=== PATIENT | male | born 1985 | race Caucasian/White ===

== ENCOUNTER 2020-09-28 22:21 | Emergency (ER) | payer BC ==
[~2020-09-28] VITALS: Ht 190.5 cm; Wt 145.0 kg
--- NOTE | 2020-09-28 22:21 | NUR ---
INITIAL PT CONTACT. PT PRESENTS TO ED VIA EMS A TRANSFER FROM [facility] FOR PLEURITIC CHEST PAIN AND "RULE OUT PE, [facility] DOES NOT HAVE APPRORPIATE SCAN TO RULE OUT BECAUSE OF THE PT'S KIDNEY CONDITION", PER EMS. PT STATES PAIN BEGAN APPROX 24 HOURS AGO, WORSE WITH INSPIRATION AND MOVEMENT, "I THOUGHT I JUST MIGHT HAVE PERICARDITIS AGAIN." PT DENIES ANY OTHER COMPLAINTS AT THIS TIME. CALL LIGHT AND PERSONAL BELONGINGS WITHIN REACH. PT PLACED ON CONTINUOUS PULSE OX AND CARDIAC MONITORING. AWAITING ERP
[2020-09-28] MEDS ORDERED: LOSA50TA14 PO (22:39)
[2020-09-28] MEDS ORDERED: SPIR25TA5 PO (22:39)
[2020-09-28] MEDS ORDERED: LABE200T6 PO (22:39)
[2020-09-28] MEDS ORDERED: CLON0.1T22 PO (22:39)
[2020-09-28] MEDS ORDERED: HYDR100T25 PO (22:39)
[2020-09-28] MEDS ORDERED: KETOROLAC 30 MG/1 ML ONE (23:26)
[2020-09-28] MEDS ORDERED: KETOROLAC 30 MG/1 ML IVPush ONE (23:30)
--- NOTE | 2020-09-28 23:38 | NUR ---
PT C/O INCREASING PAIN, REQUESTING PAIN MEDICATION, ERP AWARE AND PT MEDICATED PER EMAR. NO ADDITIONAL NEEDS AT THIS TIME. US AT BEDSIDE
[2020-09-28 23:53] LABS: HCT (SEDRATE) 23.3 % (39.2-51.8)
--- NOTE | 2020-09-29 01:21 | NUR ---
TASK RN: PT IN [facility] WITH SHMAE[facility] AND CALL LIGHT WITHIN REACH. PT VSS AND UPDATED IN EMR. DR CONTRERAS AT BS WITH PT AT THIS TIME.
[2020-09-29 02:19] VITALS: BP 110/70
== END 2020-09-29 02:39 | disposition home or self-care (01) ==
LOC: ED 09-29 02:30
DX: I30.0 Acute nonspecific idiopathic pericarditis (principal); R07.89 Other chest pain; R94.31 Abnormal electrocardiogram [ECG] [EKG]; I12.9 Hypertensive chronic kidney disease with stage 1 through stage 4 chronic kidney disease, or unspecified chronic kidney disease; N18.9 Chronic kidney disease, unspecified
CPT/HCPCS: 36415; 85651; 86140; 93005; 93970; 96374; 99285; J1885